=== PATIENT | female | born 1990 ===

== ENCOUNTER 2017-10-24 14:35 | Emergency (ER) | payer MEDICAID ==
[2017-10-24 14:35] VITALS: BMI 37.0
[2017-10-24 14:45] VITALS: O2SAT 98
[2017-10-24] MEDS ORDERED: Sodium Chloride 0.9% 500 ML IV STA (14:57)
--- NOTE | 2017-10-24 15:08 | ED PDOC ---
HPI:Nausea, Vomiting, Diarrhea Time Seen by Provider: 10/24/17 14:47 Chief Complaint (Nursing): Abdominal Pain Chief Complaint (Provider): Hematemesis History Per: Patient History/Exam Limitations: no limitations Onset/Duration Of Symptoms: Days Current Symptoms Are (Timing): Still Present Associated Symptoms: Vomiting. denies: Diarrhea, Constipation Additional History Per: Patient Additional Complaint(s): 27yo female with no known past medical history, presents to ED for evaluation of vomiting since yesterday. PAtient states she has been unable to tolerate food but is able to tolerate some fluids. She states over the last couple episodes of vomiting, she noted the emesis was blood tinged; she denies any jeovany blood, bloody or black stools. Patient does states she has epigastric pain for the past month and was started on Carafate by her PMD with relief, however her symptoms started again 1 week ago. Patient states she feels as if acid is going into her chest and has mild light headedness, and a mild headache. She denies any fever, chills, diarrhea, constipation. Patient does state she has been modifying her diet to eliminate triggers for gastritis, stomach ulcers. She has no other medical complaints. PCP: Dr. Velazquez, [facility] Past Medical History Reviewed: Historical Data, Nursing Documentation, Vital Signs Vital Signs: Last Vital Signs Temp 99.1 F 10/24/17 14:43 Pulse 85 10/24/17 14:43 Resp 20 10/24/17 14:43 BP 133/77 10/24/17 14:43 Pulse Ox 98 10/24/17 14:43 - Medical History PMH: No Chronic Diseases - Surgical History Surgical History: No Surg Hx - Family History Family History: States: Diabetes, Hypertension - Social History Alcohol: Occasional (hasn't drank since June 2017) - Home Medications Home Medications: Ambulatory Orders Medication Instructions Recorded Ca/Cholecalciferol/Fe/Folic 1 1 tab PO DAILY 11/09/14 [Basic's Vitamins] Ferrous Sulfate 325 mg PO BID #0 tab 11/12/14 Oxycodone HCl/Acetaminophen 1 tab PO Q8 PRN #20 tab 11/12/14 [Percocet 325 mg-5 mg] Omeprazole Magnesium [Prilosec Otc] 20 mg PO DAILY #30 tcp 10/24/17 Ondansetron ODT [Zofran ODT] 1 odt PO Q6 PRN #20 odt 10/24/17 Sucralfate [Carafate Tab] 1 gm PO Q6 PRN #30 tab 10/24/17 - Allergies Allergies/Adverse Reactions: Allergies Allergy/AdvReac Type Severity Reaction Status Date / Time No Known Allergies Allergy Verified 10/24/17 14:42 Review of Systems ROS Statement: Except As Marked, All Systems Reviewed And Found Negative Constitutional: Negative for: Fever, Chills Cardiovascular: Positive for: Light Headedness, Other (feels "acid coming into her chest") Gastrointestinal: Positive for: Vomiting, Hematemesis. Negative for: Nausea, Diarrhea, Constipation, Melena, Hematochezia Physical Exam - Reviewed Nursing Documentation Reviewed: Yes Vital Signs Reviewed: Yes - Physical Exam Appears: Positive for: Non-toxic, No Acute Distress Head Exam: Positive for: ATRAUMATIC, NORMOCEPHALIC Skin: Positive for: Warm, Dry Eye Exam: Positive for: EOMI, PERRL, Conjunctival injection (mild, bilateral) ENT: Positive for: Pharynx Is (clear), Other (Petechiae noted to soft palate) Neck: Positive for: Painless ROM, Supple Cardiovascular/Chest: Positive for: Regular Rate, Rhythm. Negative for: Murmur Respiratory: Positive for: Normal Breath Sounds. Negative for: Respiratory Distress Gastrointestinal/Abdominal: Positive for: Soft, Tenderness (mild epigastric tenderness). Negative for: Mass, Distended, Guarding, Rebound Back: Positive for: Normal Inspection. Negative for: Decreased ROM Extremity: Positive for: Normal ROM. Negative for: Deformity Lymphatic: Negative for: Adenopathy Neurologic/Psych: Positive for: Alert. Negative for: Motor/Sensory Deficits - Laboratory Results Result Diagrams: 10/24/17 14:57 10/24/17 14:57 Urine POC: Negative Urine dip results: Positive for: Blood (trace). Negative for: Leukocyte Esterase, Nitrate, Ketones, Glucose, Bilirubin, Protein - ECG O2 Sat by Pulse Oximetry: 98 (RA) Pulse Ox Interpretation: Normal Medical Decision Making Medical Decision Making: Impression: Vomiting, epigastric pain, hematemesis Differential diagnosis (includes but not limited to): Ulcers, gastritis, GERD, anemia, coagulopathy Plan: -- Labs -- IV Fluids -- Zofran 8mg IV -- Protonix 40mg IVP Hgb 11.2, which is improved c/w previous labs despite slight anemia. No emergently significant lab abnormalities. Clinical presentation and findings not c/w serious GI bleed and pt stable for discharge with urgent GI follow up. NADEEN Robb who advised pt to present to Dr Velazquez's office tomorrow and GI appt can be made by end of week. Called Dr Velazquez's office to schedule appt, 11am tomorrow. NADEEN pt findings and plan of care. Tolerated PO in ER. Concerns/questions addressed and answered. 1630 Patient reports persistent epigastric pain, patient given Maalox 30ml PO and Lidocaine 2% 10ml PO. 1756 Patient reports improvement in epigastric pain, and is stable for discharge home. Instructed to follow up with Dr. Velazquez at 11am tomorrow without fail. Scribe Attestation: Documented by Jackie Rodriguez acting as a scribe for Flavia Sofia MD. Provider Attestation: All medical record entries made by the Scribe were at my direction and personally dictated by me. I have reviewed the chart and agree that the record accurately reflects my personal performance of the history, physical exam, medical decision making, and the department course for this patient. I have also personally directed, reviewed, and agree with the discharge instructions and disposition. Disposition - Clinical Impression Clinical Impression: Gastritis Counseled Patient/Family Regarding: Studies Performed, Diagnosis, Need For Followup, Rx Given - Disposition Referrals: Malik Velazquez MD [Family Provider] - 10/25/17 11:00 am (VISITA DR VELAZQUEZ POR ABBY AMAYA A HACER RONALDO MARTHA DE SPECIALIST [facility] DE SEMANA.) Disposition: Routine/Home Disposition Time: 16:29 Condition: IMPROVED Additional Instructions: BLANDITO COMIDO Y BEKAH MUCHO LAILA [facility] A RECETO VISITS DR VELAZQUEZ POR AGUIRRE MARTHA POR ABBY AMAYA. Prescriptions: Omeprazole Magnesium [Prilosec Otc] 20 mg PO DAILY #30 tcp Ondansetron ODT [Zofran ODT] 1 odt PO Q6 PRN #20 odt PRN Reason: Nausea/Vomiting Sucralfate [Carafate Tab] 1 gm PO Q6 PRN #30 tab PRN Reason: ABDOMINAL PAIN Instructions: Nausea and Vomiting, Adult (DC), Gastritis (DC) Forms: [facility] School/Work Excuse Print Language: KYRGYZ
[2017-10-24 15:22] LABS: BASO # 0.1 K/uL (0.0-0.2); BASO % 0.5 % (0.0-2.0); EOS # 0.1 K/uL (0.0-0.7); EOS % 1.5 % (0.0-4.0); HEMOGLOBIN 11.2 g/dL (12.0-16.0); LYMPH # 3.1 K/uL (1.0-4.3); LYMPH % 32.6 % (20.0-40.0); MEAN CELL VOLUME 76.6 fl (81.0-99.0); MEAN CORPUSCULAR HEMOGLOBIN 24.8 pg (27.0-31.0); MEAN CORPUSCULAR HGB CONC 32.4 g/dL (33.0-37.0); MEAN PLATELET VOLUME 8.6 fl (7.2-11.7); MONO # 0.5 K/uL (0.0-0.8); MONO % 5.6 % (0.0-10.0); NEUT # 5.7 K/uL (1.8-7.0); NEUT % 59.8 % (50.0-75.0); RBC 4.52 Mil/uL (3.80-5.20); RED CELL DISTRIBUTION WIDTH 15.6 % (11.5-14.5); WHITE BLOOD COUNT 9.5 K/uL (4.8-10.8)
[2017-10-24 15:31] LABS: INR 1.1 (0.9-1.2); PARTIAL THROMBOPLASTIN TIME 32.1 Seconds (25.6-37.1); PROTHROMBIN TIME 12.7 Seconds (9.8-13.1)
[2017-10-24 15:39] LABS: ALB/GLOB RATIO 1.3 (1.0-2.1); ALBUMIN 4.3 g/dL (3.5-5.0); ALT/SGPT 38 U/L (9-52); AST/SGOT 35 U/L (14-36); BLOOD UREA NITROGEN 9 mg/dl (7-17); CALCIUM 9.1 mg/dL (8.4-10.2); GFR AFRICAN-AMERICAN > 60; GFR NON-AFRICAN AMERICAN > 60; LIPASE 38 U/L (23-300)
[2017-10-24] MEDS ORDERED: Alum-Mag Hydrox-Simethicone Susp (30 mL) PO STA (16:41)
[2017-10-24] MEDS ORDERED: Alum-Mag Hydrox-Simethicone Susp (30 mL) ONE (16:45)
[2017-10-24 18:14] VITALS: BP 120/78; PULSE 78; RESP 19; TEMP 97
== END 2017-10-24 18:14 | disposition home or self-care (01) ==
LOC: H.ER 14:35
DX: K29.70 Gastritis, unspecified, without bleeding (principal); K92.0 Hematemesis
CPT/HCPCS: 80053; 81025; 83690; 85025; 85610; 85730; 86850; 86900; 96374; 99283; C9113; J2405; J7040

== ENCOUNTER 2018-05-12 11:17 | Emergency (ER) | payer MEDICAID ==
[2018-05-12 11:17] VITALS: BMI 37.0
[2018-05-12 11:29] VITALS: BP 115/68; PULSE 85; RESP 16; TEMP 98.4; O2SAT 97
--- NOTE | 2018-05-12 12:37 | ED PDOC ---
HPI: Back Time Seen by Provider: 05/12/18 12:16 Chief Complaint (Nursing): Back Pain Chief Complaint (Provider): Back Pain History Per: Patient History/Exam Limitations: no limitations Onset/Duration Of Symptoms: Days (4x) Current Symptoms Are (Timing): Still Present Severity: Moderate Previous Symptoms: None Additional Complaint(s): 27 year old female with no past medical history presents to the ED with complaints of right lower back pain that started 4x days ago. Patient denies any trauma or similar back pain in the past. Patient reports seeing her PMD, who prescribed her NSAID and flexeril, which she has been taking with no relief. Patient denies having any urinary symptoms, and denies using a hot compress or stretching for pain relief. PMD: None provided Past Medical History Reviewed: Historical Data, Nursing Documentation, Vital Signs Vital Signs: Last Vital Signs Temp 98.4 F 05/12/18 11:25 Pulse 85 05/12/18 11:25 Resp 16 05/12/18 11:25 BP 115/68 05/12/18 11:25 Pulse Ox 97 05/12/18 11:25 - Medical History PMH: No Chronic Diseases - Family History Family History: States: Diabetes, Hypertension - Social History Alcohol: None Drugs: Denies - Home Medications Home Medications: Ambulatory Orders Medication Instructions Recorded Ca/Cholecalciferol/Fe/Folic 1 1 tab PO DAILY 11/09/14 [Basic's Vitamins] Ferrous Sulfate 325 mg PO BID #0 tab 11/12/14 Oxycodone HCl/Acetaminophen 1 tab PO Q8 PRN #20 tab 11/12/14 [Percocet 325 mg-5 mg] Omeprazole Magnesium [Prilosec Otc] 20 mg PO DAILY #30 tcp 10/24/17 Ondansetron ODT [Zofran ODT] 1 odt PO Q6 PRN #20 odt 10/24/17 Sucralfate [Carafate Tab] 1 gm PO Q6 PRN #30 tab 10/24/17 Naproxen [Naprosyn] 500 mg PO BID PRN #20 tablet 05/12/18 diaZEpam [Valium] 5 mg PO Q6H PRN #15 tab 05/12/18 - Allergies Allergies/Adverse Reactions: Allergies Allergy/AdvReac Type Severity Reaction Status Date / Time No Known Allergies Allergy Verified 10/24/17 14:42 Review of Systems ROS Statement: Except As Marked, All Systems Reviewed And Found Negative Genitourinary Female: Negative for: Dysuria, Frequency Musculoskeletal: Positive for: Back Pain (right, lower) Physical Exam - Reviewed Nursing Documentation Reviewed: Yes Vital Signs Reviewed: Yes - Physical Exam Appears: Positive for: Well, Non-toxic, No Acute Distress Head Exam: Positive for: ATRAUMATIC, NORMOCEPHALIC Skin: Positive for: Normal Color Eye Exam: Positive for: Normal appearance ENT: Positive for: Normal ENT Inspection Neck: Positive for: Normal Cardiovascular/Chest: Positive for: Regular Rate, Rhythm Respiratory: Positive for: Normal Breath Sounds. Negative for: Accessory Muscle Use, Respiratory Distress Back: Positive for: Other (midline tenderness). Negative for: L CVA Tenderness, R CVA Tenderness Neurologic/Psych: Positive for: Alert, Oriented (3x) - ECG O2 Sat by Pulse Oximetry: 97 (RA) Pulse Ox Interpretation: Normal Medical Decision Making Medical Decision Makin:16 Initial impression: 27 year old female with right lower back pain Initial plan: * XRay LS spine AP/LAT * upreg * udip * urinalysis * toradol 60 mg IM * valium 5 mg PO Pt reports feeling better on re-evaluation. Discussed importance of stretches and f/u with PMD and orthopedics ---- Scribe Attestation: Documented by Sandy Mcpherson, acting as a scribe for Yany Roberts PA-C. Provider Scribe Attestation: All medical record entries made by the Scribe were at my direction and personally dictated by me. I have reviewed the chart and agree that the record accurately reflects my personal performance of the history, physical exam, medical decision making, and the department course for this patient. I have also personally directed, reviewed, and agree with the discharge instructions and disposition. Normal XR No sign of infection in urine. Disposition - Clinical Impression Clinical Impression: Low back pain - Patient ED Disposition Is Patient to be Admitted: No Counseled Patient/Family Regarding: Diagnosis, Need For Followup, Rx Given - Disposition Referrals: [facility] [Outside] Disposition: Routine/Home Disposition Time: 13:42 Condition: GOOD Prescriptions: diaZEpam [Valium] 5 mg PO Q6H PRN #15 tab PRN Reason: Pain Naproxen [Naprosyn] 500 mg PO BID PRN #20 tablet PRN Reason: Pain Instructions: Low Back Pain in Adults Forms: [facility] (Sami)
[2018-05-12 13:46] LABS: SQUAMOUS EPITHIAL 3 /hpf (0-5); URINE BILIRUBIN NEGATIVE (NEGATIVE); URINE BLOOD NEGATIVE (NEGATIVE); URINE CLARITY SLIGHTY-CLOUDY (Clear); URINE COLOR YELLOW (YELLOW); URINE GLUCOSE (UA) NEG (Normal); URINE LEUKOCYTE ESTERASE NEG Leu/uL (Negative); URINE PROTEIN NEGATIVE (NEGATIVE); URINE UROBILINOGEN 0.2-1.0 mg/dL (0.2-1.0)
--- NOTE | 2018-05-12 14:49 | RAD ---
Date of service: 05/12/2018 PROCEDURE: Radiographs of the Lumbar Spine. HISTORY: back pain, no trauma COMPARISON: No prior. FINDINGS: BONES: Normal alignment. No listhesis. No fracture. DISC SPACES: Unremarkable. OTHER FINDINGS: None. IMPRESSION: Unremarkable radiographs of the lumbar spine.
== END 2018-05-12 13:41 | disposition home or self-care (01) ==
LOC: H.ER 11:17
DX: M54.5 Low back pain (principal)
CPT/HCPCS: 72100; 81003; 81025; 96372; 99282; J1885

== ENCOUNTER 2018-08-13 11:21 | Emergency (ER) | payer MEDICAID ==
[2018-08-13 11:35] VITALS: BMI 32.4
[2018-08-13 11:37] VITALS: RESP 20
[2018-08-13] MEDS ORDERED: Sodium Chloride 0.9% 1,000 ML IV STA (12:04)
--- NOTE | 2018-08-13 12:49 | ED PDOC ---
HPI:Nausea, Vomiting, Diarrhea Time Seen by Provider: 08/13/18 11:42 Chief Complaint (Nursing): GI Problem Chief Complaint (Provider): Diarrhea History Per: Patient, Field Sales Representative Additional Complaint(s): Pt reports 3 days h/o nonbloody diarrhea, nausea and back pain after urinating, diarrhea, temp 100.4 yesterday, last took Pepto-Bismol yesterday. Denies vomiting, hematuria. Abnormal Vaginal Bleeding: No Past Medical History Reviewed: Nursing Documentation, Vital Signs Vital Signs: Last Vital Signs Temp 98.9 F 08/13/18 11:35 Pulse 90 08/13/18 11:35 Resp 20 08/13/18 11:35 BP 117/80 08/13/18 11:35 Pulse Ox 99 08/13/18 11:35 - Medical History PMH: No Chronic Diseases - Surgical History Surgical History: No Surg Hx - Family History Family History: States: Diabetes, Hypertension - Living Arrangements Living Arrangements: With Family - Social History Current smoker - smoking cessation education provided: No Alcohol: None - Home Medications Home Medications: Ambulatory Orders Medication Instructions Recorded Ca/Cholecalciferol/Fe/Folic 1 1 tab PO DAILY 11/09/14 [Basic's Vitamins] Ferrous Sulfate 325 mg PO BID #0 tab 11/12/14 Oxycodone HCl/Acetaminophen 1 tab PO Q8 PRN #20 tab 11/12/14 [Percocet 325 mg-5 mg] Omeprazole Magnesium [Prilosec Otc] 20 mg PO DAILY #30 tcp 10/24/17 Ondansetron ODT [Zofran ODT] 1 odt PO Q6 PRN #20 odt 10/24/17 Sucralfate [Carafate Tab] 1 gm PO Q6 PRN #30 tab 10/24/17 Naproxen [Naprosyn] 500 mg PO BID PRN #20 tablet 05/12/18 diaZEpam [Valium] 5 mg PO Q6H PRN #15 tab 05/12/18 Nitrofurantoin Macrocrystals 100 mg PO BID #9 cap 08/13/18 [Macrobid] Phenazopyridine HCl [Pyridium] 200 mg PO TID PRN #6 tablet 08/13/18 - Allergies Allergies/Adverse Reactions: Allergies Allergy/AdvReac Type Severity Reaction Status Date / Time No Known Allergies Allergy Verified 10/24/17 14:42 Review of Systems Constitutional: Positive for: Fever (Yesterday) Cardiovascular: Negative for: Chest Pain Respiratory: Negative for: Cough, Shortness of Breath Gastrointestinal: Positive for: Nausea, Diarrhea. Negative for: Vomiting, Abdominal Pain Genitourinary Female: Positive for: Dysuria, Vaginal Discharge, Vaginal Bleeding. Negative for: Hematuria Skin: Negative for: Rash, Lesions Neurological: Negative for: Headache, Dizziness Physical Exam - Reviewed Nursing Documentation Reviewed: Yes Vital Signs Reviewed: Yes - Physical Exam Appears: Positive for: Well, No Acute Distress Skin: Positive for: Normal Color, Warm, Dry Eye Exam: Positive for: Normal appearance, EOMI, PERRL Cardiovascular/Chest: Positive for: Regular Rate, Rhythm Respiratory: Positive for: Normal Breath Sounds. Negative for: Rales, Rhonchi, Wheezing Gastrointestinal/Abdominal: Positive for: Normal Exam, Bowel Sounds, Soft. Negative for: Tenderness Back: Positive for: L CVA Tenderness. Negative for: R CVA Tenderness Extremity: Positive for: Normal ROM Neurologic/Psych: Positive for: Alert, Oriented - Laboratory Results Result Diagrams: 08/13/18 12:50 08/13/18 12:50 - ECG O2 Sat by Pulse Oximetry: 99 Medical Decision Making Medical Decision Makin yo female with nausea, flank pain and diarrhea. - labs - IVF - Zofran Disposition - Clinical Impression Clinical Impression: UTI (urinary tract infection) - Disposition Referrals: [facility] [Outside] Disposition: Routine/Home Disposition Time: 15:19 Condition: STABLE Prescriptions: Nitrofurantoin Macrocrystals [Macrobid] 100 mg PO BID #9 cap Phenazopyridine HCl [Pyridium] 200 mg PO TID PRN #6 tablet PRN Reason: Bladder Spasm Instructions: Urinary Tract Infections in Adults Forms: [facility] [employer] [facility] (Serbian) Print Language: YI
[2018-08-13 13:41] LABS: BASO % 0.5 % (0.0-2.0); EOS # 0.1 K/uL (0.0-0.7); HEMOGLOBIN 11.9 g/dL (12.0-16.0); LYMPH # 1.5 K/uL (1.0-4.3); LYMPH % 33.5 % (20.0-40.0); MEAN CELL VOLUME 74.9 fl (81.0-99.0); MEAN CORPUSCULAR HEMOGLOBIN 24.4 pg (27.0-31.0); MEAN CORPUSCULAR HGB CONC 32.6 g/dL (33.0-37.0); MONO # 0.4 K/uL (0.0-0.8); MONO % 9.8 % (0.0-10.0); NEUT # 2.4 K/uL (1.8-7.0); NEUT % 54.2 % (50.0-75.0); NRBC % 0.3 % (0.0-0.0); RBC 4.89 Mil/uL (3.80-5.20); RED CELL DISTRIBUTION WIDTH 15.9 % (11.5-14.5); WHITE BLOOD COUNT 4.4 K/uL (4.8-10.8)
[2018-08-13 13:47] LABS: INR 1.2; PROTHROMBIN TIME 13.8 Seconds (9.8-13.1)
[2018-08-13 13:49] LABS: PARTIAL THROMBOPLASTIN TIME 34.5 Seconds (25.6-37.1)
[2018-08-13 13:51] LABS: BLOOD UREA NITROGEN 12 mg/dl (7-17); CALCIUM 9.1 mg/dL (8.4-10.2); GFR NON-AFRICAN AMERICAN > 60
[2018-08-13 13:53] LABS: ALB/GLOB RATIO 1.2 (1.0-2.1); ALBUMIN 4.4 g/dL (3.5-5.0); ALT/SGPT 30 U/L (9-52); AST/SGOT 35 U/L (14-36)
[2018-08-13 13:56] LABS: GRANULAR CAST 86 /lpf (0-1); SQUAMOUS EPITHIAL 4 /hpf (0-5); URINE BACTERIA OCC (<OCC); URINE BILIRUBIN NEGATIVE (NEGATIVE); URINE BLOOD SMALL (NEGATIVE); URINE CLARITY SLIGHTY-CLOUDY (Clear); URINE COLOR YELLOW (YELLOW); URINE GLUCOSE (UA) NEG (NEGATIVE); URINE LEUKOCYTE ESTERASE NEG Leu/uL (Negative); URINE PROTEIN 30 mg/dL (NEGATIVE); URINE UROBILINOGEN 0.2-1.0 mg/dL (0.2-1.0)
[2018-08-13 15:54] VITALS: BP 116/62; PULSE 73; TEMP 98.6
[2018-08-20 14:43] VITALS: O2SAT 99
== END 2018-08-13 16:07 | disposition home or self-care (01) ==
LOC: H.ER 11:21
DX: N39.0 Urinary tract infection, site not specified (principal)
CPT/HCPCS: 80053; 81003; 85025; 85610; 85730; 96360; 99284; J2405; J7030